=== PATIENT | female | born 2000 | race Two or more races ===

== ENCOUNTER 2024-09-29 17:39 | Emergency (ER) | payer MEDICAID, SELFPAY ==
[2024-09-29 18:02] VITALS: BP 135/87; PULSE 86; RESP 16; TEMP 36.9; O2SAT 98; BMI 40.7
--- NOTE | 2024-09-29 18:18 | EDNOTE_ITS ---
ED OB Contraction Preg RMI/HPI General Chief complaint: Vaginal Bleeding Stated complaint: VAGINAL BLEEDING, 11 WKS PREG Time Seen by Provider: 09/29/24 18:13 Source: patient Arrival date/time: 09/29/24 17:39 34-year-old female approximately 11 weeks presents to the emergen cy department complaining of mild vaginal bleeding and abdominal cramping that started this morning. Patient denies any chills, fever, dysuria, nausea vomiting, or any other associated symptom. Mode of arrival: ambulatory Limitations: no limitations Related Data : 2 Para: 1 Ab: 0 Home Medications ?Medication ?Instructions ?Recorded ?Confirmed metformin 500 mg tablet 500 mg PO BID 03/31/21 03/31/21 vit no.95-ferrous tab PO 03/31/21 fumarate 28 mg-folic acid 800 mcg tablet () Previous Rx's ?Medication ?Instructions ?Recorded levothyroxine 100 mcg tablet 100 mcg PO ACBR 30 days #30 tabs 04/01/21 Allergies Allergy/AdvReac Type Severity Reaction Status Date / Time No Known Allergies Allergy Unverified 09/29/24 17:42 Review of Systems Review of Systems Systems Reviewed: All systems reviewed, normal except as documented Constitutional Constitutional: Reports system reviewed and no additional complaints, except as documented, Denies body ache(s), Denies chills and Denies fever(s) Eyes Eyes: Reports system reviewed and no additional complaints, except as documented and Denies change in vision ENT Ears, Nose, Mouth, and Throat: Reports system reviewed and no additional complaints, except as documented, Denies disequilibrium, Denies dizziness, Denies sore throat and Denies vertigo Cardiovascular Cardiovascular: Reports system reviewed and no additional complaints, except as documented, Denies chest pain and Denies dyspnea Respiratory Respiratory: Reports system reviewed and no additional complaints, except as documented, Denies chest congestion, Denies cough and Denies dyspnea Gastrointestinal Gastrointestinal: Reports system reviewed and no additional complaints, except as documented, Reports abdominal pain, Denies nausea and Denies vomiting Genitourinary Genitourinary: Reports abnormal vaginal bleeding Musculoskeletal Musculoskeletal: Reports system reviewed and no additional complaints, except as documented, Denies abnormal gait and Denies arthralgias Integumentary/Breasts Skin/Breast: Reports system reviewed and no additional complaints, except as documented, Denies erythema, Denies rash and Denies wounds Neurologic Neurologic: Reports system reviewed and no additional complaints, except as documented, Denies abnormal gait, Denies disequilibrium, Denies dizziness and Denies vertigo Past Medical History Past Medical History NEUROLOGIC: Negative Neurological Disorders or Seizures CARDIAC: Negative Cardiac Disorders or Congestive Heart Failure RESPIRATORY: Negative Chronic Obstructive Pulmonary Disease (COPD) GASTROINTESTINAL: Negative Gastrointestinal Disorders GENITOURINARY: Negative Genitourinary Disorders or Renal Disease MUSCULOSKELETAL: Negative Musculoskeletal Disorders ENDOCRINE: Positive Diabetes Mellitus Type 2 (ON METFORMIN); Negative Diabetes Mellitus Type 1 HEMATOLOGIC: Negative Blood Disorders OTHER HISTORY: Negative Hospitalization, Autoimmune Disease, Shingles, Falls, Blood Transfusions, Blood Transfusion Reaction, Anesthesia Reactions, MRSA, VRSA, Clostridium Difficile or Cancer Family History FAMILY HISTORY: Negative Family Psychiatric Problems, Family Respiratory Disorders, Family Cardiac Disorders, Family Gastrointestinal Problems, Family Cancer, Family Surgery or Family Anesthesia Reaction Surgical History SURGICAL: Negative Section Social History SMOKING STATUS: Never smoker ED Exam General Limitations: Present no limitations General appearance: Present alert and in no apparent distress Head Head exam: Present atraumatic Eye Eye exam: Present normal appearance, PERRL and EOMI ENT ENT exam: Present normal exam, normal oropharynx and mucous membranes moist Neck Neck exam: Present normal inspection, full ROM and trachea midline Chest Chest inspection: Present normal inspection and symmetric chest wall rise Respiratory Respiratory exam: Present normal lung sounds bilaterally Cardiovascular Cardiovascular exam: Present regular rate, normal rhythm and normal heart sounds Abdominal Exam Abdominal exam: Present soft and normal bowel sounds Extremities Exam Extremities exam: Present normal inspection and full ROM Back Exam Back exam: Present normal inspection and full ROM Neurological Exam Neurological exam: Present alert, oriented X3 and CN II-XII intact Psychiatric Psychiatric exam: Present normal affect and normal mood Skin Skin exam: Present warm, dry, intact and normal color Course Quality Measures none Orders Category Date Time Status US OB <= 14 weeks fetus Stat Exams 09/29/24 18:18 Completed ABO/RH Type Stat Lab 09/29/24 18:32 Completed Beta HCG,Quantitative Stat Lab 09/29/24 18:32 Completed CBC Stat Lab 09/29/24 18:32 Completed CMP [Comprehensive Metabolic Panel] Stat Lab 09/29/24 18:32 Completed Urinalysis, C/S if Indicated Stat Lab 09/29/24 20:35 Completed Vital Signs Vital signs: Vital Signs Temperature 98.5 F 09/29/24 18:02 Pulse Rate 86 09/29/24 18:02 Respiratory Rate 16 09/29/24 18:02 Blood Pressure 135/87 H 09/29/24 18:02 Pulse Oximetry (%) 98 09/29/24 18:02 Oxygen Delivery Method Room Air 09/29/24 18:02 98% room air within normal limits Vaginal Bleeding MDM Narrative MDM Narrative: 34-year-old female approximately 11 weeks presents to the emergency department complaining of mild vaginal bleeding and abdominal cramping that started this morning. Patient denies any chills, fever, dysuria, nausea vomiting, or any other associated symptom. Patient CBC mild leukocytosis with hemoglobin 13.2. CMP was unremarkable with beta-hCG 101, 735. Urinalysis was unremarkable for any infection. Ultrasound findings viable intrauterine gestation 9 weeks 2 days. Patient appears nontoxic and hemodynamically stable. Patient discharged home instructed to follow-up with [facility] (EX ) in 24 to 48 hours and return to emergency department for any worsening symptoms or as needed. Patient data External records reviewed:: [facility] previous records Clinical information provided by:: patient Social determinants that could affect healthcare access:: none Patient has the following chronic illnesses:: See chart How is presenting disease/condition affected by chronic disease/condition?: uneffected by Evaluation data The following diagnostics were reviewed and interpreted by me:: lab results and radiology exam(s) Lab and/or radiology exams considered but not ordered:: Ordered Interpretation Summary: Interpreted by me Medications / Prescriptions Medications or Prescriptions considered but not ordered:: N/A Medication administrations:: N/A Consultations Consultation(s) initiated? (list below): No Diagnosis Vaginal Bleeding Differential Diagnosis: missed , threatened , dysfunctional uterine bleeding and vaginal bleeding Most likely diagnosis given after review of the tests above:: Vaginal bleeding early Admission Indicated Admission indicated?: not indicated Admission Request Was there a request for admission?: No Disposition Plan Disposition Plan: Discharge Discharge Attestation Discharge Attestation: The patient and all family members were given an opportunity to ask questions and understood the discharge instructions. Discharge instructions specifically effects, indications for sooner follow up or return to the emergency department, and the expected course of current diagnosis. Patient condition: Stable Discharge Plan Plan Patient Disposition: HOME (Self Care) Disposition Comment: Stable Prescriptions/Referrals Prescriptions/Med Rec: No Action metformin 500 mg Tablet 500 mg PO BID PNV cmb#95-ferrous fumarate-FA [] 28 mg iron- 800 mcg Tablet PO levothyroxine 100 mcg Tablet 100 mcg PO ACBR 30 Days Qty: 30 1RF Referrals: No Primary/Family,Physician [Primary Care Provider] - In 1 week Problem List Clinical Impression: Vaginal bleeding affecting early Patient/Caregiver Discharge Instructions Education Materials: Bleeding During Early Additional Instructions: Pelvic rest. Follow-up with [facility] (EX ) in 24 to 48 hours for repeat ultrasound and beta-hCG trend. Return to the emergency department for any worsening symptoms or as needed. Print Language: Austrian Stand Alone Forms: Sharmila Award Info., Patient Portal Info Letter PA/YARN DRY ROOM WORKER Supervising Physician PA/YARN DRY ROOM WORKER Supervising Physician: Dr. Girard
--- NOTE | 2024-09-29 18:18 | XR_ITS ---
Examination: Complete OB ultrasound, less than 14 weeks, transabdominal Date and time of exam: September 29, 2024 at 2009 hrs. Indications: Vaginal bleeding beginning today, early by history Technique: Obstetrical ultrasound images less than 14 weeks performed via transabdominal imaging Findings: A normal shaped single intrauterine gestation is present in the uterus. pole 2.5 cm corresponds to 9 weeks 2 days gestational age Cardiac motion 171 bpm Ultrasonographic survey of visible and placental structures unremarkable. Amniotic fluid volume appears appropriate for this estimated gestational age. Right ovary obscured by bowel gas Left ovary 2.3 x 1.9 x 3.7 cm arterial flow Impression: Viable intrauterine gestation 9 weeks 2 days.
[2024-09-29 18:39] LABS: Basophils % (Auto) 0 % (0-2.5); Eosinophils # (Auto) 0.1 Thou/mm3 (0.0-0.5); Eosinophils % (Auto) 1 % (0-10); Hematocrit 39.9 % (36.0-46.0); Hemoglobin 13.2 g/dL (12.0-16.0); Immature Granulocytes % (Auto) 0 % (0-0); Immature Granulocytes Auto 0.03 Thou/mm3 (0.00-0.00); Lymphocytes # (Auto) 2.2 Thou/mm3 (1.0-4.8); Lymphocytes % (Auto) 19 % (10-50); Mean Corpuscular HGB Conc 33.1 g/dl (31.0-37.0); Mean Corpuscular Hemoglobin 26.3 pg (25.0-35.0); Mean Corpuscular Volume 80 fL (80-100); Monocytes # (Auto) 0.6 Thou/mm3 (0.0-0.8); Monocytes % (Auto) 5 % (0-12); Neutrophils # (Auto) 8.9 Thou/mm3 (1.8-7.7); Neutrophils % (Auto) 76 % (37-80); Nucleated Red Blood Cell % 0 /100 WBC (0); Platelet Count 282 Thou/mm3 (140-440); Red Blood Count 5.01 Miln/mm3 (4.00-5.20); White Blood Count 11.7 Thou/mm3 (3.6-11.0)
[2024-09-29 19:07] LABS: Alanine Aminotransferase 11 U/L (10-49); Albumin, Serum 4.4 gm/dL (3.5-5.0); Albumin/Globulin Ratio 1.6 (1.2-2.2); Alkaline Phosphatase 62 U/L (46-116); Anion Gap 7 (7-16); Aspartate Amino Transferase 11 U/L (0-34); BUN/Creatinine Ratio 13 Ratio (12-20); Bilirubin,Total 0.3 mg/dL (0.3-1.2); Blood Urea Nitrogen 9 mg/dL (9-23); Calcium 9.8 mg/dL (8.3-10.6); Calcium (Corrected) 9.8 mg/dL (8.5-10.1); Carbon Dioxide 23.1 mMol/L (20.0-31.0); Chloride 105 mMol/L (98-107); Creatinine (Component) 0.7 mg/dL (0.6-1.3); Estimated Creatinine Clearance 143.1 mL/min (>60); Globulin 2.8 gm/dL (2.3-3.5); Glucose 97 mg/dL (74-106); Osmolality,Calculated 268 (275-295); Sodium 135 mMol/L (136-145); Total Protein 7.2 gm/dL (5.7-8.2); eGFR > 60 See Note
[2024-09-29 19:49] LABS: Beta HCG,Quantitative 101735 mIU/mL (<5.0)
[2024-09-29 21:07] LABS: Collection Type, Urine Clean Catch
[2024-09-29 21:13] LABS: Bilirubin,Urine Negative (Negative); Blood,Urine 3+ (Negative); Clarity,Urine Turbid (Clear/Hazy); Color,Urine Yellow (Lt Yel-Yel); Culture Indicated,Urine Not Indicated; Glucose, Urine Negative (Negative); Ketones,Urine Negative (Negative); Leukocyte Esterase,Urine Negative (Negative); Nitrite,Urine Negative (Negative); Protein,Urine 1+ (Neg - Trace); RBC,Urine 20 /hpf (0-3); Specific Gravity,Urine 1.028 (1.001-1.035); Squamous Epithelial Cell,Urine 5 /hpf (0-5); Urobilinogen,Urine Negative mg/dL (0.0-1.0); WBC,Urine 5 /hpf (0-5)
[2024-09-29 21:57] VITALS: BP 138/83; PULSE 82; RESP 18; TEMP 37.2; O2SAT 100
== END 2024-09-29 22:45 | disposition home or self-care (01) ==
PROVIDERS: Emergency Provider Emergency Medicine
DX: O20.9 Hemorrhage in early pregnancy, unspecified (principal); Z3A.09 9 weeks gestation of pregnancy
CPT/HCPCS: 36415; 76801; 80053; 81001; 84702; 85025; 86900; 86901; 99284

== ENCOUNTER → 2025-01-29 | Outpatient (CLI) | payer MEDICAID, SELFPAY ==
--- NOTE | 2025-01-29 | XR_ITS ---
Examination: PA chest single view TECHNIQUE: Upright PA chest single view Exam date and time: January 29, 2025 1229 hours INDICATIONS: TB screening FINDINGS: Normal heart size. Lungs are clear. The osseous structures are intact Impression: No active disease No radiographic findings of tuberculosis
== END | disposition home or self-care (01) ==
PROVIDERS: PCP Specialist; Referring Provider Specialist; Visit Provider Specialist
DX: R76.11 Nonspecific reaction to tuberculin skin test without active tuberculosis (principal)
CPT/HCPCS: 71045

== ENCOUNTER 2025-04-22 05:36 | Inpatient (IN) | payer MEDICAID, SELFPAY ==
--- NOTE | 2025-04-18 01:19 | ESHP_ITS ---
RE: MILLIE ALEMAN : 2000 DATE OF ADMISSION: 04/22/2025 HISTORY OF PRESENT ILLNESS: This is a 24-year-old 2, para 1 with due date of 05/02/2025 with intrauterine at 38 weeks' gestation who presents for repeat delivery. The patient's care was complicated by chronic hypertension as well as pre- gestational diabetes. She reports normal movement. She denies any leaking or bleeding. She reports occasional contractions. ALLERGIES: NO KNOWN DRUG ALLERGIES. MEDICATIONS: 1. Levothyroxine 150 mcg 1 p.o. daily 2. vitamin 1 p.o. daily 3. Aspirin 81 mg 1 p.o. daily PAST MEDICAL HISTORY: Hypothyroidism, chronic hypertension, pre-gestational diabetes mellitus type 2. SOCIAL HISTORY: She denies any alcohol, drug use or smoking. OBSTETRIC HISTORY: In 2020, 38 weeks, delivery, 5 pound 12 ounce male, complicated by gestational diabetes mellitus class A1. PAST SURGICAL HISTORY: delivery in 2020. REVIEW OF SYSTEMS: She denies any chest pain, palpitations, cough, fever, shortness of breath or lower extremity pain. She denies any headache, change in vision or right upper quadrant pain. PHYSICAL EXAMINATION: VITAL SIGNS: Blood pressure is 131/67, heart rate 88, respirations 18, temperature 38.6, weight 270 pounds. HEENT: Oropharynx and sclerae are clear. LUNGS: Clear to auscultation bilaterally. HEART: Regular rate and rhythm. ABDOMEN: Gravid, term size. Old Pfannenstiel scar noted. EXTREMITIES: Nontender. SKIN: No gross rashes or lesions. NEUROLOGIC: No focal deficit. ASSESSMENT: Intrauterine at 38 weeks, chronic hypertension, class B diabetes mellitus, well controlled, previous delivery, elects repeat delivery. PLAN: Repeat delivery. Informed consent was obtained. The patient was made aware of the risks, complications, alternatives and benefits of the proposed procedure and she agrees. DT: 23:14:46 TT: 01:18:00 Ref: [id number] - TID: [id number] MTDD
[2025-04-21 11:25] LABS: Basophils # (Auto) 0.1 Thou/mm3 (0.0-0.2); Basophils % (Auto) 1 % (0-2.5); Eosinophils # (Auto) 0.1 Thou/mm3 (0.0-0.5); Eosinophils % (Auto) 1 % (0-10); Hemoglobin 14.5 g/dL (12.0-16.0); Immature Granulocytes % (Auto) 1 % (0-0); Immature Granulocytes Auto 0.08 Thou/mm3 (0.00-0.00); Lymphocytes # (Auto) 1.8 Thou/mm3 (1.0-4.8); Lymphocytes % (Auto) 15 % (10-50); Mean Corpuscular HGB Conc 35.4 g/dl (31.0-37.0); Mean Corpuscular Hemoglobin 29.7 pg (25.0-35.0); Mean Corpuscular Volume 84 fL (80-100); Monocytes # (Auto) 0.6 Thou/mm3 (0.0-0.8); Monocytes % (Auto) 5 % (0-12); Neutrophils # (Auto) 9.5 Thou/mm3 (1.8-7.7); Neutrophils % (Auto) 78 % (37-80); Nucleated Red Blood Cell % 0 /100 WBC (0); Platelet Count 221 Thou/mm3 (140-440); RDW Standard Deviation 42.5 fL (36.4-46.3); Red Blood Count 4.89 Miln/mm3 (4.00-5.20); White Blood Count 12.1 Thou/mm3 (3.6-11.0)
[2025-04-21 11:36] LABS: INR 0.9 (0.9-1.3); Partial Thromboplastin Time 29.3 Seconds (22.0-36.0)
[2025-04-21 11:39] LABS: Alanine Aminotransferase 9 U/L (10-49); Albumin/Globulin Ratio 1.8 (1.2-2.2); Alkaline Phosphatase 120 U/L (46-116); Anion Gap 11 (7-16); BUN/Creatinine Ratio 11 Ratio (12-20); Bilirubin,Total 0.5 mg/dL (0.3-1.2); Blood Urea Nitrogen 8 mg/dL (9-23); Calcium 9.5 mg/dL (8.3-10.6); Calcium (Corrected) 9.5 mg/dL (8.5-10.1); Carbon Dioxide 21.7 mMol/L (20.0-31.0); Chloride 103 mMol/L (98-107); Creatinine (Component) 0.7 mg/dL (0.6-1.3); Globulin 2.2 gm/dL (2.3-3.5); Glucose 91 mg/dL (74-106); Osmolality,Calculated 270 (275-295); Potassium 4.4 mMol/L (3.4-5.1); Sodium 136 mMol/L (136-145); Total Protein 6.2 gm/dL (5.7-8.2); eGFR > 60 See Note
[2025-04-21 12:01] LABS: Syphilis Nonreactive (Nonreactive)
[2025-04-22] VITALS (34 sets, daily range): BP systolic 104–140; BP diastolic 50–93; PULSE 65–98; RESP 12–20; TEMP 36.2–37; O2SAT 94–100; BMI 40.7
[2025-04-22] MEDS: ceFAZolin/D5W 2 GM IV 2 GM/100 ML BAG IV (07:24)
[2025-04-22] MEDS: METOCLOPRAMIDE INJ 5 MG/ML VIAL 2 ML 10 MG IVP (07:25)
[2025-04-22] MEDS: FAMOTIDINE INJ 10 MG/ML VIAL 2 ML 20 MG IV (07:25)
[2025-04-22] MEDS: RINGERS LACTATED 1000 ML 1,000 ML 100 ML IV (07:27)
--- NOTE | 2025-04-22 08:42 | ESDS_ITS ---
DS: Providers Provider Date of admission: 04/22/25 05:36 Primary care physician: Physician No Primary/Family Admitting Provider: Cameron Aguilar MD Attending Provider on Admission: Cameron Aguilar MD Attending Provider on DC: Cameron Aguilar MD Discharging Provider: Cameron Aguilar MD DS: Diagnosis Discharge Diagnosis (1) Status post delivery: Status: Acute Problem List Completed Was Problem List Reviewed/Reconciled?: Yes Summary/Hosp Course Brief History: see notes Peripartum Data Delivery Method: Low Transverse Procedures: Procedures Operation Date: 04/22/25 07:45 <No data on this case meets the specified criteria> 1: Disposition of : home Time Spent with Patient Time attestation: Total time spent providing and/or coordinating discharge services: Exam Vital Signs Pulse BP Pulse Ox 67 128/75 100 04/22/25 07:14 04/22/25 07:14 04/22/25 07:28 Discharge Plan Plan Patient Disposition: HOME (Self Care) Patient condition on transfer: Stable Prescriptions/Referrals Prescriptions/Med Rec: New levothyroxine 75 mcg capsule 75 mcg PO QDAY Qty: 90 3RF hydrocodone-acetaminophen 5-325 mg Tablet 1 tab PO Q6HR MDD 4 PRN (Reason: Patient rated pain 9 to 10) 5 Days Qty: 20 0RF ibuprofen 400 mg Tablet 800 mg PO Q8HR PRN (Reason: Pain Scale 4-6 (Moderate) 10 Days Qty: 30 0RF docusate sodium 100 mg Capsule 100 mg PO QDAY 30 Days Qty: 30 0RF Continued PNV cmb#95-ferrous fumarate-FA [] 28 mg iron- 800 mcg Tablet 1 tab PO QDAY Discontinued metformin 500 mg Tablet 500 mg PO BID levothyroxine 100 mcg Tablet 100 mcg PO ACBR 30 Days Qty: 30 1RF Referrals: Cameron Aguilar MD [Physician] - No Primary/Family,Physician [Primary Care Provider] - Patient/Caregiver Discharge Instructions Discharge Activity: activity as tolerated Other Discharge Activity Instructions:: Follow up office 1 week. She already has a Rx for hydrocodone. Education Materials: Treating Thyroid Problems, CGM, After Delivery [place] Concerns, Breast Care After , After a , C Section Dc, Feel Healthy After Print Language: Maltese Stand Alone Forms: Sharmila Award Info., Patient Portal Info Letter Discharge Order Discharge Orders: Discharge (Routine); Ordered 04/24/25 Ordered By: Cameron Aguilar Planned Discharge Date 04/24/25
--- NOTE | 2025-04-22 08:43 | OBDSUM_ITS ---
Data (Mariscal) Data Hx Section: No : 2 Term: 0 : 0 Livin Abortions: Spontaneous & Theraputic: 0 Delivery Data (Mariscal) Labor Data ROM date: 04/22/25 ROM time: 08:06 Amniotic membrane rupture type: Artificial Amniotic fluid description: Clear Delivery Data EDC: 05/06/25 EDC calculated by:: LMP/early US confirmation Onset of labor date: 04/22/25 Onset of labor time: 08:06 Complete dilation date: 04/22/25 Complete dilation time: 08:06 [place] delivery date: 04/22/25 [place] delivery time: 08:06 Gestational age (weeks): 38 Placenta delivery date: 04/22/25 Placenta delivery time: 08:07 Stage 1 total time: Labor - Stage 1 Duration 0 minutes Delivered by: Cameron Aguilar Delivery nurse: Damon Subramanian nurse: Wenceslao Media Production Operator at delivery: No Support person(s) at delivery: FOB Delivery Method Delivery method: Low Transverse Presentation: Vertex Anesthesia Type Anesthesia Type: Spinal Placenta Placenta delivery description: Manual Removal Cord blood sent to lab: Yes cord blood collection: Cord Blood Type EBL Estimated blood loss (ml): 500 Umbilical Cord cord description: 3 Vessels Additional Procedures None Complications Complications: None [place] Data (Mariscal) Data order: 1 's gender: Female Identification band number: [id number] weight (gms): 6 lb 10.175 oz Weight (pounds): 6 lbs and 10.2 ozs 1 minute: 9 5 minutes: 9
[2025-04-22] MEDS: OXYTOCIN in NS 20 units 20 UNIT/1,000 ML BAG 125 UNIT IV (09:06)
--- NOTE | 2025-04-22 10:37 | ESOP_ITS ---
RE: MILLIE ALEMAN : 2000 DATE OF OPERATION: 04/22/2025 PREOPERATIVE DIAGNOSES: 1. Intrauterine at 38 weeks' gestation. 2. Borderline chronic hypertension. 3. Class B diabetes mellitus, well controlled on metformin. 4. Previous delivery. 5. Elects repeat delivery. POSTOPERATIVE DIAGNOSES: 1. Intrauterine at 38 weeks' gestation. 2. Borderline chronic hypertension. 3. Class B diabetes mellitus, well controlled on metformin. 4. Previous delivery. 5. Elects repeat delivery. PROCEDURE PERFORMED: A repeat low transverse section via Pfannenstiel skin incision. SURGEON: Cameron Aguilar DO POST TENSIONING IRONWORKER: MALISSA Corral ANESTHESIA: Spinal. ANESTHESIOLOGIST: Robert Corea CRNA ESTIMATED BLOOD LOSS: 500 mL. COMPLICATIONS: None. COUNTS: Correct. PATHOLOGY: None. FINDINGS: A live , cephalic presentation, clear amniotic fluid. True umbilical cord knot. Apgars, see RN notes. Placenta removed completely intact. Uterus, ovaries, and tubes grossly within normal limits. DESCRIPTION OF PROCEDURE: After proper informed consent was obtained and the patient was made aware of risks, complications, alternatives, and benefits of the proposed procedure, she was taken to the operating room where she underwent induction of spinal anesthesia. She was prepped and draped in the usual sterile fashion. A timeout was performed. A Pfannenstiel skin incision was made with scalpel, carried through to the underlying layer of fascia with the Bovie. The fascia was nicked in the midline. Incision was extended bilaterally with the Bovie. The inferior aspect of the fascial incision was grasped with Abril clamps and elevated. The underlying rectus muscles were dissected off with the Bovie. The rectus muscles were in the midline. The peritoneum was identified between 2 Hurst clamps and entered with the Metzenbaum scissors. The incision was extended superiorly and inferiorly with good visualization of the bladder. The bladder blade was then inserted. Vesicouterine peritoneum was incised transversely and a bladder flap created digitally. The bladder blade was reinserted. The lower uterine segment was incised in transverse fashion with the scalpel. The incision was extended bilaterally digitally. The infant's head was delivered. The mouth and nose were suctioned with bulb suction. Shoulder and body delivered atraumatically. There was a nuchal cord and there was a true knot in the cord. The infant was sent off to the pediatric staff after the cord was clamped and cut. Cord blood was collected. Placenta was then removed manually. The uterus was exteriorized and cleared of all clots and debris. The uterus incision was repaired with 1-0 chromic catgut suture in a running locking fashion. The second layer of same suture was used to imbricate the first layer and obtained excellent hemostasis. The vesicouterine peritoneum was closed with 2-0 chromic catgut suture in a running fashion. The fundus was firm. The uterus was returned to the abdomen. The gutters were cleared of all clots and debris. The peritoneum was closed with #0 chromic catgut suture in running fashion. The muscle was closed with #0 chromic catgut suture in running fashion. The fascia was closed with #0 Vicryl beginning at each angle and in a center running fashion. Subcutaneous tissue was irrigated with normal saline solution and found to be hemostatic and closed with 2-0 chromic catgut suture in running fashion. The skin was closed with 4-0 Monocryl. A Dermabond and Prineo dressing was applied. A sterile pressure dressing was applied. She tolerated the procedure well. Counts were correct. I discussed with the patient the nature of her condition, the intraoperative findings, and expectation for recovery. All questions were answered. DT: 08:36:10 TT: 10:35:00 Ref: [id number] - TID: [id number]
--- NOTE | 2025-04-22 11:19 | PC.NURSE ---
04/22/25 1117: Called DO Jeff watkins pts. plan of care for DM type 2, and CHTN. Per DO pt. is to have a diabetic diet ordered, Fasting and 1hour after meal blood sugar checks ordered. Call DO if pts. blood pressure are greater than 160/110.
--- NOTE | 2025-04-22 12:33 | PD.NBHP ---
Maternal Data Maternal Data Total time ruptured membranes: Total Time Ruptured (Hours) 0 minutes Labs: Positive: Rubella Titre, Negative: Hepatitis B, HIV, Chlamydia, Gonorrhea and Group Beta Strep and Unknown: Herpes Type 1, Herpes Type 2 and Covid-19 [place] Data [place] Data Date of : 04/22/25 Time of : 08:06 Gestational Age (weeks): 38 Gestational Age (days): 4 route: (repeat) Weight (gms): 104.326 kg [place] Length (cm): 1.6 m Exam Vital Signs-Last 24hrs Most Recent Vital Signs Temp 97.2 F 04/22/25 08:45 Pulse 75 04/22/25 10:45 Resp 13 04/22/25 10:45 BP 121/64 04/22/25 10:45 Pulse Ox 96 04/22/25 10:45 O2 Del Method Room Air 04/22/25 10:45 Diagnosis Diagnosis (1) Status post delivery: Status: Acute Problem List Completed Was Problem List Reviewed/Reconciled?: Yes Assessment and Plan Impression Impression: This note was made in error. Please disregard.
[2025-04-22 13:03] LABS: Basophils # (Auto) 0.1 Thou/mm3 (0.0-0.2); Basophils % (Auto) 0 % (0-2.5); Eosinophils % (Auto) 0 % (0-10); Hematocrit 37.8 % (36.0-46.0); Hemoglobin 13.3 g/dL (12.0-16.0); Immature Granulocytes % (Auto) 1 % (0-0); Immature Granulocytes Auto 0.11 Thou/mm3 (0.00-0.00); Lymphocytes # (Auto) 1.5 Thou/mm3 (1.0-4.8); Lymphocytes % (Auto) 9 % (10-50); Mean Corpuscular HGB Conc 35.2 g/dl (31.0-37.0); Mean Corpuscular Hemoglobin 29.8 pg (25.0-35.0); Mean Corpuscular Volume 85 fL (80-100); Monocytes # (Auto) 0.7 Thou/mm3 (0.0-0.8); Monocytes % (Auto) 4 % (0-12); Neutrophils # (Auto) 15.1 Thou/mm3 (1.8-7.7); Neutrophils % (Auto) 86 % (37-80); Nucleated Red Blood Cell % 0 /100 WBC (0); Platelet Count 202 Thou/mm3 (140-440); RDW Standard Deviation 42.9 fL (36.4-46.3); Red Blood Count 4.46 Miln/mm3 (4.00-5.20); White Blood Count 17.5 Thou/mm3 (3.6-11.0)
[2025-04-23] VITALS: BP 110/74; PULSE 81; RESP 17; TEMP 36.8; O2SAT 97
[2025-04-23 04:00] VITALS: BP 118/77; PULSE 81; RESP 18; TEMP 36.7; O2SAT 98
[2025-04-23] MEDS: LEVOTHYROXINE SODIUM 100 MCG TABLET PO (06:10)
[2025-04-23] MEDS: LEVOTHYROXINE SODIUM 88 MCG TABLET PO (06:10)
[2025-04-23] MEDS: IBUPROFEN TAB 400 MG TABLET 800 MG PO (06:18)
[2025-04-23 07:40] VITALS: BP 130/71; PULSE 69; RESP 18; TEMP 36.8; O2SAT 98
--- NOTE | 2025-04-23 07:53 | ESPR_ITS ---
Subjective Subjective Interval history: Delivery type: Patient doing well this morning. No acute complaints. Ambulating, tolerating p.o. and voiding without difficulty. HTN/Pre-Eclampsia screen: No chest pain, shortness of breath, headache, visual changes, epigastric or right upper quadrant pain. Breast-feeding, lochia diminishing. Bowel: Flatus+/ BM+ Exam Vital Signs Temp Pulse Resp BP Pulse Ox O2 Del Method 98.1 F 81 18 118/77 98 Room Air 04/23/25 04:00 04/23/25 04:00 04/23/25 04:00 04/23/25 04:00 04/23/25 04:00 04/23/25 04:00 Constitutional Constitutional: no acute distress Routine HEENT Exam Head: Present normocephalic and atraumatic Eye: Present EOMI and PERRL ENT: Present mucous membranes moist Routine Neck Exam Neck: Present supple and trachea midline Routine Respiratory Exam Respiratory: Present chest non-tender, lungs clear, normal breath sounds and no resp distress Routine Cardiovascular Exam Cardiovascular: Present RRR Routine Abdominal Exam Abdominal: Present soft and normoactive bowel sounds Routine Extremities Exam Extremities: Present full ROM Routine Skin Exam Skin: Present intact, dry and warm Routine Neurological Exam Neurological: Present alert, oriented X3 and CN II-XII intact Routine Psychiatric Exam Psychiatric: Present normal affect and normal thought process Objective Labs 04/22/25 12:24 04/21/25 10:37 Labs: Laboratory Results - last 24 hr 04/22/25 12:24 WBC 17.5 H D RBC 4.46 Hgb 13.3 Hct 37.8 MCV 85 MCH 29.8 MCHC 35.2 RDW Std Deviation 42.9 Plt Count 202 Neut % (Auto) 86 H Lymph % (Auto) 9 L [place] % (Auto) 4 Eos % (Auto) 0 Baso % (Auto) 0 Neut # (Auto) 15.1 H Lymph # (Auto) 1.5 [place] # (Auto) 0.7 Eos # (Auto) 0.0 Baso # (Auto) 0.1 Immature Gran # (Auto) 0.11 H Absolute Nucleated RBC 0.00 Immature Gran % 1 H Nucleated RBC % 0 Assessment & Plan Problem List (1) Status post delivery: Status: Acute Assessment and plan: PPD/POD#2 1. Continue routine care 2. Transition to PO meds. 3. Encourage to ambulate/ breast-feed 4. Anticipate discharge home today. Time Spent With Patient Time: Total time spent is greater than 50% in coordination of care (as documented) at patient's floor/unit and/or counseling patient:
--- NOTE | 2025-04-23 07:54 | PD.LDDS ---
DS: Providers Provider Date of admission: 04/22/25 05:36 Primary care physician: Physician No Primary/Family Admitting Provider: Cameron Aguilar MD Attending Provider on Admission: Kapil Klein MD Consults: 04/22/25 09:01 Referral Routine Comment: Attending Provider on DC: Kapil Klein MD Discharging Provider: Kapil Klein MD DS: Diagnosis Discharge Diagnosis (1) Diabetes mellitus type 2, diet-controlled: Status: Acute (2) Borderline hypertension: Status: Acute (3) delivery delivered: Status: Acute Problem List Completed Was Problem List Reviewed/Reconciled?: Yes Summary/Hosp Course Brief History: see notes Peripartum Data Delivery Method: Low Transverse Procedures: Procedures Operation Date: 04/22/25 07:45 Actual Procedure Side Surgeon p in OB Not Applicable Cameron Aguilar MD Time Spent with Patient Time attestation: Total time spent providing and/or coordinating discharge services: Exam Vital Signs Temp Pulse Resp BP Pulse Ox O2 Del Method 98.1 F 81 18 118/77 98 Room Air 04/23/25 04:00 04/23/25 04:00 04/23/25 04:00 04/23/25 04:00 04/23/25 04:00 04/23/25 04:00 Discharge Plan Plan Patient Disposition: HOME (Self Care) Patient condition on transfer: Stable Prescriptions/Referrals Prescriptions/Med Rec: New levothyroxine 75 mcg capsule 75 mcg PO QDAY Qty: 90 3RF hydrocodone-acetaminophen 5-325 mg Tablet 1 tab PO Q6HR MDD 4 PRN (Reason: Patient rated pain 9 to 10) 5 Days Qty: 20 0RF ibuprofen 400 mg Tablet 800 mg PO Q8HR PRN (Reason: Pain Scale 4-6 (Moderate) 10 Days Qty: 30 0RF docusate sodium 100 mg Capsule 100 mg PO QDAY 30 Days Qty: 30 0RF Continued PNV cmb#[id number]-ferrous fumarate-FA [] 28 mg iron- 800 mcg Tablet 1 tab PO QDAY Discontinued metformin 500 mg Tablet 500 mg PO BID levothyroxine 100 mcg Tablet 100 mcg PO ACBR 30 Days Qty: 30 1RF Referrals: No Primary/Family,Physician [Primary Care Provider] - Cameron Aguilar MD [Physician] - Patient/Caregiver Discharge Instructions Discharge Activity: activity as tolerated Other Discharge Activity Instructions:: Follow up office 1 week. She already has a Rx for hydrocodone. Education Materials: C Section Dc, Treating Thyroid Problems, CGM, After Delivery Concerns, Breast Care After , After a , Feel Healthy After Print Language: Romansh Stand Alone Forms: Sharmila Award Info., Patient Portal Info Letter Planned Discharge Date 04/23/25
[2025-04-23] MEDS: ENOXAPARIN SOD INJ 40 MG/0.4 ML SYRINGE SC (09:00)
[2025-04-23] MEDS: DOCUSATE SOD 100 MG CAPSULE PO (09:00)
[2025-04-23] MEDS: ACETAMINOPHEN 325 MG TABLET 650 MG PO (15:02)
[2025-04-23 16:01] VITALS: BP 111/72; PULSE 71; RESP 20; TEMP 36.7; O2SAT 98
[2025-04-23 20:00] VITALS: BP 118/76; PULSE 73; RESP 18; TEMP 36.7; O2SAT 98
[2025-04-24] MEDS: IBUPROFEN TAB 400 MG TABLET 800 MG PO (00:05)
[2025-04-24 03:52] VITALS: BP 120/79; PULSE 70; RESP 18; TEMP 36.5; O2SAT 98
[2025-04-24] MEDS: LEVOTHYROXINE SODIUM 100 MCG TABLET PO (05:57)
[2025-04-24] MEDS: LEVOTHYROXINE SODIUM 88 MCG TABLET PO (05:57)
--- NOTE | 2025-04-24 06:41 | ESPR_ITS ---
RE: MILLIE ALEMAN : 2000 DATE OF SERVICE: 04/24/2025 S: Postoperative day #2, the patient denies any problem or complaints. She is voiding. She is ambulating. She is tolerating regular diet. She is passing flatus. She denies any excessive vaginal bleeding. She denies any dizziness or lightheadedness. She denies any chest pain, palpitations, shortness of breath, or lower extremity pain. O: Vital Signs: Stable, afebrile. Lungs: Clear to auscultation bilaterally. Heart: Regular rate and rhythm. Abdomen: Incision clear and intact. Fundus is firm. Lochia is scant. Extremities: Nontender. A: Postoperative day #2, status post delivery. P: Discharge home. Discharge instructions given. Follow up in the office in 1 week. DT: 06:23:08 TT: 06:39:00 Ref: [id number] - TID: [id number]
[2025-04-24 08:00] VITALS: BP 115/74; PULSE 74; RESP 18; TEMP 36.9; O2SAT 98
[2025-04-24] MEDS: DOCUSATE SOD 100 MG CAPSULE PO (09:10)
[2025-04-24] MEDS: ENOXAPARIN SOD INJ 40 MG/0.4 ML SYRINGE SC (09:10)
== END 2025-04-24 11:50 | disposition home or self-care (01) | DRG 540 ==
LOC: S4SX 07:31 → S4NX 07:42
PROVIDERS: Admitting Provider Specialist; Visit Provider Obstetrics & Gynecology
PROC: 10D00Z1 Extraction of Products of Conception, Low, Open Approach (ICD-10-PCS; CPT 59514; principal; 2025-04-22 07:30)
DX: O34.211 Maternal care for low transverse scar from previous cesarean delivery (principal); O69.2XX0 Labor and delivery complicated by other cord entanglement, with compression, not applicable or unspecified; O69.81X0 Labor and delivery complicated by cord around neck, without compression, not applicable or unspecified; Z37.0 Single live birth; Z3A.38 38 weeks gestation of pregnancy; O16.4 Unspecified maternal hypertension, complicating childbirth; O24.32 Unspecified pre-existing diabetes mellitus in childbirth; Z79.4 Long term (current) use of insulin
CPT/HCPCS: 36415; 80053; 85025; 85610; 85730; 86780; 86850; 86900; 86901; A4314; A4649; J0689; J1650; J2175; J2274; J2371; J2590; J2765; J3010; J3490; J7120; A9270; J2270